=== PATIENT | female | born 1940 ===

== ENCOUNTER 2016-06-04 13:45 | Outpatient (RCR) | payer OTHER | END 2016-06-26 | disposition home or self-care (01) | LOC: PTY 13:45 | PROVIDERS: ATTEND Internal Medicine | DX: M54.5 Low back pain (principal); R53.1 Weakness; M81.0 Age-related osteoporosis without current pathological fracture; M19.031 Primary osteoarthritis, right wrist | CPT/HCPCS: 97035; 97110; G0283 ==